=== PATIENT | female | born 1940 | race Caucasian/White ===

== ENCOUNTER → 2016-12-30 | Outpatient (CLI) | payer MEDICARE, OTHER ==
--- NOTE | 2016-12-30 08:36 | RAD ---
Indication chest congestion and cough. PA and lateral views of the chest were obtained and are compared to an exam 03/30/2016. The heart and pulmonary vessels appear normal. There is now, in contrast to the previous examination, a right parahilar parenchymal mass or marked adenopathy in the right hilum. There is likely some postobstructive atelectasis associated with the right upper lobe. A CT examination of the chest is advised. The left lung is clear. There is no pleural fluid or pneumothorax. There is marked compression of a midthoracic vertebral body segment similar to the previous exam. IMPRESSION: Adenopathy or mass in the right hemithorax, new relative to the previous exam. Malignancy would be the leading consideration. CT examination of the chest, with contrast, should be considered.
== END | disposition home or self-care (01) ==
LOC: DXRADRC 08:16
PROVIDERS: ATTEND Physician Assistant Medical
DX: R05 Cough (principal); R09.89 Other specified symptoms and signs involving the circulatory and respiratory systems
CPT/HCPCS: 71020

== ENCOUNTER → 2017-01-01 | Outpatient (CLI) | payer MEDICARE, OTHER ==
[~2017-01-01] MED LIST: IOHEXOL 300 MG/ML 75 ML VIAL. IV ONE
[2017-01-01 08:39] LABS: CREATININE 1.1 mg/dL (0.6-1.0)
--- NOTE | 2017-01-01 09:24 | RAD ---
Indication abnormal chest x-ray. Contrast imaging through the chest was performed. 60 cc of Omnipaque 300 was administered intravenously. Note is made of the plain film examination of the chest 2 days previously and the accompanying report. Note is made of a prior CT examination of the chest one year ago. Imaging through the upper abdomen demonstrates a low-density mass in the liver compatible with a cyst similar to the previous exam. There is a right renal cyst which is partially visualized and measures approximately 4.3 cm in greatest dimension. There is some enlargement of the left adrenal gland compatible with an adenoma appearing similar to the previous study. An acute or definite significant finding in the upper abdomen is not seen. The thoracic aorta appears unremarkable. There are nodules in both lobes of the thyroid and isthmus. These are probably incidental but could be further evaluated with nonemergent ultrasound. There is mediastinal adenopathy representing a new finding compared to the prior exam. There is moderate pretracheal adenopathy and significant subcarinal adenopathy. Right hilar adenopathy is also present. The finding on plain film, involving the right hemithorax, is largely secondary to atelectasis associated with the anterior segment of the right upper lobe. The parenchymal opacity, occupying the right upper lobe, for the most part is not a mass but atelectasis. A smaller parenchymal hilar mass is not excluded. There is some circumferential narrowing of the right upper lobe bronchus. Bronchoscopy should be considered for additional evaluation. There is a peripheral pulmonary nodule in the left lower lobe, image 59 series 4, appearing similar to the prior study. A dominant parenchymal mass in either lung is not seen. There is marked compression of thoracic vertebral body segment similar to the previous study IMPRESSION: The findings on plain film are largely secondary to atelectasis involving the right upper lobe. There is, however, significant mediastinal adenopathy and right hilar adenopathy which is new relative to a study one year ago. This raises the strong concern for underlying malignancy in the mediastinum and/or right hilum. Bronchoscopy may be useful for additional evaluation. Thyroid nodules. These are likely incidental. Ultrasound could be performed for additional evaluation if clinically warranted. Chronic changes in the upper abdomen PQRS Compliance Statement: One or more of the following individualized dose reduction techniques were utilized for this examination: 1. Automated exposure control 2. Adjustment of the mA and/or kV according to patient size 3. Use of iterative reconstruction technique
== END | disposition home or self-care (01) ==
LOC: CT 07:52
PROVIDERS: ATTEND Physician Assistant Medical
DX: E04.2 Nontoxic multinodular goiter (principal); J98.11 Atelectasis; R91.8 Other nonspecific abnormal finding of lung field; R59.9 Enlarged lymph nodes, unspecified
CPT/HCPCS: 36415; 71260; 82565; 84520; Q9967

== ENCOUNTER → 2018-04-12 | Outpatient (CLI) | payer MEDICARE, OTHER ==
--- NOTE | 2018-04-12 16:48 | RAD ---
CT scan of the chest, abdomen and pelvis without contrast 04/12/2018 CLINICAL HISTORY: Lung cancer with mid and low back pain. TECHNIQUE: Unenhanced, contiguous, 3 mm axial sections were obtained through the chest, abdomen and pelvis. One or more of the following individualized dose reduction techniques were utilized for this study: 1. Automated exposure control. 2. Adjustment of the mA and/or kV according to patient size. 3. Use of iterative reconstruction technique. FINDINGS: Comparison is made to a CT scan of the chest dated 12/27/2015. Moderate atherosclerotic calcification of the thoracic aorta and its branches is noted. The thoracic aorta is tortuous but tapers normally. A coronary artery stent is unchanged. Small calcified right hilar and mediastinal lymph nodes are noted. Enlarged anterior mediastinal lymph nodes are seen which are new since the previous examination. These measure 1 cm to 2 cm in size. An enlarged supraclavicular lymph node is seen which measures 3.8 cm in greatest diameter. This is new since the previous examination. The patient appears to be post right upper lobectomy. Volume loss of the right lung is seen. Right middle lobe atelectasis and/or infiltrate is seen. Pleural thickening and associated pleural calcified pleural plaques are seen involving the right lower lobe. Mild emphysematous changes are seen involving both lungs. A 6 mm pleural-based nodular opacity is seen within the left lower lobe which is unchanged. No pneumothorax or pleural effusion is noted. Rounded low-attenuation lesions are seen involving both lobes of the liver. These measure 1 to 1.6 cm in size. They are consistent with hepatic cysts. They are unchanged. Calcified granulomas are seen scattered throughout the spleen. Calcifications are seen within the tail of pancreas, unchanged. Low-attenuation rounded lesions are seen involving both kidneys. These likely represent adenomas. They measure 1.6 x 1.8 cm in size. They are unchanged. Rounded low-attenuation lesions are seen involving both kidneys. These likely represent cysts. They measure 1.5 to 4 cm in size. A rounded mass is seen within the head/uncinate 8 process of the pancreas which measures 3.9 x 3.7 x 3.7 cm in craniocaudal, AP and transverse dimensions. The pancreatic duct distal to this mass is dilated. This mass is concerning for pancreatic carcinoma. Atherosclerotic calcification of the abdominal aorta and its branches is noted. The abdominal aorta is tortuous. Aneurysmal dilatation of the infrarenal abdominal aorta is seen. This measures 3.9 cm in greatest AP diameter. Partially calcified gallstones are seen within the gallbladder. No free fluid or free air is seen within the abdomen. There is no evidence of bowel obstruction. An enlarged lymph node is seen medial to the right adrenal gland which measures 2.4 cm in size. It is new since the previous examination. Enlarged peripancreatic lymph nodes are seen which measure 1 to 3.1 cm in size. Images through the pelvis demonstrate the urinary bladder to be contracted. No adnexal mass is seen. Scattered diverticula are seen involving the sigmoid colon. No inflammatory changes are seen in the adjacent fat. No free fluid is noted. No pelvic or abdominal lymphadenopathy is seen. Mild S-shaped curvature of the thoracolumbar spine is noted. A 3.5 cm soft tissue mass is seen surrounding the left L4 transverse process partially destroying it. It is consistent with a metastasis. Old appearing fractures of the T8,T9,L1 and L4 vertebral bodies are noted. Degenerative changes are seen involving the thoracic and throughout the lumbar spine. IMPRESSION: 1. Mediastinal and left supraclavicular lymphadenopathy. 2. 3.9 cm mass is seen involving the head of the pancreas concerning for pancreatic carcinoma. Enlarged peripancreatic lymph nodes are seen as outlined above. 3. 3.5 cm metastasis is seen surrounding the left L4 transverse process partially destroying it. Electronically signed by: Glen Patino MD (04/12/2018 4:44 PM) [facility]
--- NOTE | 2018-04-12 17:07 | RAD ---
Three-view lumbar spine series Clinical indications: Back pain. COMPARISON: Chest CT dated 01/01/2017. No previous lumbar spine study available. FINDINGS: Again seen is a compression fracture of T9 which was seen previously and is unchanged. There is new moderate compression fracture of T8. Again seen is a moderate compression fracture of L1 which is unchanged. Mild compression fractures of L4 and L5 are seen of indeterminate age. Dextroscoliosis is seen. Generalized osteopenia is evident. No osteolytic process or discitis is seen. Grade 1 anterolisthesis of L5-S1 is evident. IMPRESSION: New compression fracture T9. Mild compression fractures of L4 and L5 of indeterminate age. Generalized osteopenia. Electronically signed by: Arnulfo Presley MD (04/12/2018 5:04 PM) [place] [id number]
== END | disposition home or self-care (01) ==
LOC: PMG 14:46
PROVIDERS: ATTEND Physician Assistant
DX: C34.90 Malignant neoplasm of unspecified part of unspecified bronchus or lung (principal); M48.54XA Collapsed vertebra, not elsewhere classified, thoracic region, initial encounter for fracture; M48.56XA Collapsed vertebra, not elsewhere classified, lumbar region, initial encounter for fracture; M85.88 Other specified disorders of bone density and structure, other site; M43.17 Spondylolisthesis, lumbosacral region; I70.0 Atherosclerosis of aorta; R59.1 Generalized enlarged lymph nodes; Z87.891 Personal history of nicotine dependence
CPT/HCPCS: 71250; 72100; 74176